=== PATIENT | male | born 1965 | race Caucasian/White ===

== ENCOUNTER 2020-11-01 06:09 | Day surgery (SDC) | payer BC, OTHER ==
[2020-10-30 09:16] VITALS: BMI 37.1
[2020-11-01] MEDS ORDERED: MIDAZOLAM HCL 2 MG/2 ML SINGLE DOSE VIAL ONE (07:34)
[2020-11-01] MEDS ORDERED: ROPIVACAINE HCL 0.5% 30ML VIAL ONE (07:35)
[2020-11-01] MEDS ORDERED: PROPOFOL 20 ML ONE (07:51)
[2020-11-01] MEDS ORDERED: SUCCINYLCHOLINE CHLORIDE 200 MG/10 ML SYRINGE ONE (08:06)
[2020-11-01] MEDS ORDERED: ONDANSETRON 4 MG/2 ML VIAL IVPUSH PRN (09:57)
[2020-11-01] MEDS ORDERED: oxyCODONE HCL 5 MG TABLET PO PRN (09:57)
[2020-11-01] MEDS ORDERED: LACTATED RINGERS SOLUTION 1,000 ML IV SCH (10:00)
[2020-11-01] MEDS ORDERED: ACETAMINOPHEN 325 MG TABLET (FP) ONE (10:51)
[2020-11-01] MEDS ORDERED: ACETAMINOPHEN 500 MG TABLET (FP) PO ONE (10:51)
[2020-11-01 11:45] VITALS: TEMP 97.8
[2020-11-01 11:51] VITALS: BP 131/72; PULSE 66
== END 2020-11-01 11:35 | disposition home or self-care (01) ==
LOC: FASU 06:09
PROVIDERS: ATTEND Orthopaedic Surgery
PROC: 0RBJ4ZZ Excision of Right Shoulder Joint, Percutaneous Endoscopic Approach (ICD-10-PCS; 2020-11-01)
PROC: 0RQ Upper Joints, Repair (ICD-10-PCS; 2020-11-01)
PROC: 0LM14ZZ Reattachment of Right Shoulder Tendon, Percutaneous Endoscopic Approach (ICD-10-PCS; principal; 2020-11-01 08:23)
PROC: 0RHJ44Z Insertion of Internal Fixation Device into Right Shoulder Joint, Percutaneous Endoscopic Approach (ICD-10-PCS; 2020-11-01 08:23)
PROC: 0RNJ4ZZ Release Right Shoulder Joint, Percutaneous Endoscopic Approach (ICD-10-PCS; 2020-11-01 08:23)
DX: M75.121 Complete rotator cuff tear or rupture of right shoulder, not specified as traumatic (principal); M75.41 Impingement syndrome of right shoulder; M75.51 Bursitis of right shoulder
CPT/HCPCS: 88304-TC; 94760